=== PATIENT | female | born 1995 | race African-American/Black ===

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

== ENCOUNTER 2017-07-08 14:14 | Emergency (ER) | payer OTHER ==
[2017-07-08] MEDS: KETOROLAC TROMETHAMINE 10 MG TAB PO (16:15)
== END 2017-07-08 16:28 | disposition home or self-care (01) ==
LOC: M ED 14:14
DX: S39.012A Strain of muscle, fascia and tendon of lower back, initial encounter (principal); X58.XXXA Exposure to other specified factors, initial encounter; Y92.89 Other specified places as the place of occurrence of the external cause; G89.29 Other chronic pain; Z79.3 Long term (current) use of hormonal contraceptives
CPT/HCPCS: 99283

== ENCOUNTER 2017-10-04 22:33 | Inpatient (IN) | payer OTHER ==
[2017-10-04 23:28] LABS: HEMATOCRIT 40.6 % (36.0-47.0); HEMOGLOBIN 13.2 g/dl (12.0-15.5); MEAN CORPUSCULAR HEMOGLOBIN 29.1 pg (27.0-33.0); MEAN CORPUSCULAR HGB CONC 32.5 g/dl (32.0-36.5); MEAN CORPUSCULAR VOLUME 89.4 fl (80.0-96.0); PLATELET COUNT, AUTOMATED 296 10^3/uL (150-450); RED BLOOD COUNT 4.54 10^6/uL (4.00-5.40); RED CELL DISTRIBUTION WIDTH 11.5 % (11.5-14.5); WHITE BLOOD COUNT 7.5 10^3/uL (4.0-10.0)
[2017-10-04 23:44] LABS: CONTROL LINE HCG INT CTR LINE PRESENT; HCG, SERUM QUALITATIVE NEGATIVE (NEGATIVE)
[2017-10-04 23:50] LABS: AMPHETAMINES LEVEL URINE NEGATIVE (NEGATIVE); BARBITURATES URINE NEGATIVE (NEGATIVE); BENZODIAZEPINES URINE NEGATIVE (NEGATIVE); CANNABINOIDS URINE NEGATIVE (NEGATIVE); COCAINE METABOLITE URINE NEGATIVE (NEGATIVE); METHADONE URINE NEGATIVE (NEGATIVE); OPIATES URINE NEGATIVE (NEGATIVE); PHENCYCLIDINE URINE NEGATIVE (NEGATIVE)
[2017-10-04 23:59] LABS: ACETAMINOPHEN LEVEL < 2.0 UG/ML (10.0-30.0); ALBUMIN/GLOBULIN RATIO 1.14 (1.00-1.93); ALKALINE PHOSPHATASE 59 U/L (45-117); ALT/SGPT 14 U/L (12-78); ANION GAP 7 MEQ/L (8-16); AST/SGOT 6 U/L (7-37); BILIRUBIN,DIRECT 0.2 MG/DL (0.0-0.2); BILIRUBIN,TOTAL 0.8 MG/DL (0.2-1.0); BLOOD UREA NITROGEN 19 MG/DL (7-18); CALCIUM LEVEL 8.8 MG/DL (8.5-10.1); CARBON DIOXIDE LEVEL 25 MEQ/L (21-32); CHLORIDE LEVEL 108 MEQ/L (98-107); CREATININE FOR GFR 0.88 MG/DL (0.55-1.30); ETHYL ALCOHOL (ETHANOL) < 0.003 % (0.000-0.010); GLUCOSE, FASTING 87 MG/DL (70-100); POTASSIUM SERUM 4.3 MEQ/L (3.5-5.1); SALICYLATE LEVEL < 1.7 MG/DL (5.0-30.0); SODIUM LEVEL 140 MEQ/L (136-145); TOTAL PROTEIN 7.5 GM/DL (6.4-8.2)
[2017-10-05] MEDS ORDERED: LORazepam 1 MG TAB PO (00:15)
[2017-10-05] MEDS ORDERED: ACETAMINOPHEN TAB 650MG DOSE (2X325MG) PO (00:15)
[2017-10-05] MEDS ORDERED: MOM 30ML SUSPENSION UDC PO (00:15)
[2017-10-05] MEDS ORDERED: MAALOX 30 ML SUSP *UDC PO (00:15)
[2017-10-05] MEDS: PARoxetine 10MG TABLET PO (10:30)
[2017-10-06] MEDS: PARoxetine 10MG TABLET PO (08:18)
[2017-10-06] MEDS: traZODone 50 MG TAB PO (20:40)
[2017-10-07] MEDS: PARoxetine 10MG TABLET PO (08:11)
== END 2017-10-07 13:12 | disposition home or self-care (01) | DRG 885 ==
LOC: M ED INP 10-05 00:06 → M PSY 10-05 00:48 → M ED 22:33
DX: F32.0 Major depressive disorder, single episode, mild (principal); Z63.4 Disappearance and death of family member

== ENCOUNTER 2018-02-11 10:06 | Emergency (ER) | payer OTHER | END 2018-02-11 11:08 | disposition home or self-care (01) | LOC: M ED 10:06 | DX: O99.711 Diseases of the skin and subcutaneous tissue complicating pregnancy, first trimester (principal); R21 Rash and other nonspecific skin eruption; L29.9 Pruritus, unspecified; T49.2X5A Adverse effect of local astringents and local detergents, initial encounter; O99.341 Other mental disorders complicating pregnancy, first trimester; F41.9 Anxiety disorder, unspecified; Z79.899 Other long term (current) drug therapy; Z3A.09 9 weeks gestation of pregnancy | CPT/HCPCS: 99282 ==

== ENCOUNTER → 2018-04-16 | Outpatient (CLI) | payer OTHER ==
[~2018-04-16] MED LIST changes: +BENA25CA4 PO; +CYCL10TA PO; +DEPO150I; +IBUP-1114 PO; +NORCOTAB PO; +PARO10TA3 PO; +PREN1TAB11 PO; +TRAZ-163 PO
--- NOTE | 2018-04-16 12:52 | REP ---
Emergency obstetric sonography first trimester study. History: 18-week 4-day gestation, history of prior loss due to early cervical shortening. Referral for confirmation of cervical length and funneling by transvaginal scanning. Sonographic findings: Limited obstetric sonography demonstrates a viable single intrauterine gestation in a breech lie. heart rate is recorded at 136 beats per minute. Closed cervical length is measured at 1.6 cm transvaginally. No funneling of the internal cervical os was visualized. Impression: Transvaginal imaging shows no evidence of funneling. Cervical shortening is seen, 1.6 cm. heart rate 136 beats per minute. Electronically Signed by Roberto Argueta MD 04/16/2018 10:21 P
== END ==
LOC: M RAD 11:49
PROVIDERS: ATTEND Obstetrics & Gynecology
DX: O26.872 Cervical shortening, second trimester (principal); Z3A.18 18 weeks gestation of pregnancy

== ENCOUNTER 2018-06-23 18:25 | Outpatient (CLI) | payer OTHER ==
[~2018-06-23] VITALS: Ht 167.6 cm; Wt 64.6 kg
[~2018-06-23 18:25] MED LIST changes: +HYDR-3715 PO; -NORCOTAB PO
[2018-06-23 18:40] VITALS: BP 122/64
[2018-06-23] MEDS ORDERED: LR 1,000 ML IV ONE (19:00)
[2018-06-23] MEDS ORDERED: LR 1,000 ML IV SCH (19:00)
[2018-06-23 20:36] LABS: HEMATOCRIT 30.7 % (36.0-47.0); HEMOGLOBIN 10.1 g/dl (12.0-15.5); MEAN CORPUSCULAR HEMOGLOBIN 29.2 pg (27.0-33.0); MEAN CORPUSCULAR HGB CONC 32.9 g/dl (32.0-36.5); MEAN CORPUSCULAR VOLUME 88.7 fl (80.0-96.0); PLATELET COUNT, AUTOMATED 303 10^3/uL (150-450); RED BLOOD COUNT 3.46 10^6/uL (4.00-5.40)
[2018-06-23 20:48] LABS: APPEARANCE, URINE HAZY (CLEAR); BACTERIA, URINE AUTO 1+ (NEGATIVE); BILIRUBIN, URINE AUTO NEGATIVE (NEGATIVE); BLOOD, URINE BLOOD 1+ (NEGATIVE); COLOR, URINE YELLOW (YELLOW); GLUCOSE, URINE (UA) AUTO NEGATIVE (NEGATIVE); KETONE, URINE AUTO NEGATIVE (NEGATIVE); LEUKOCYTE ESTERASE, URINE AUTO 3+ (NEGATIVE); MUCUS, URINE SMALL (NEGATIVE); NITRITE, URINE AUTO NEGATIVE (NEGATIVE); PROTEIN, URINE AUTO NEGATIVE (NEGATIVE); RBC, URINE AUTO 4 /HPF (0-3); SQUAMOUS EPITHELIAL CELL UR AU 4 /HPF (0-6); UROBILINOGEN, URINE AUTO 0.2 mg/dL (0.0-2.0); WBC, URINE AUTO 49 /HPF (0-3)
[2018-06-23] MEDS ORDERED: PIPERACILLIN/TAZOBACTAM SOD 3.375 GM in D5W MINI-BAG PLUS 50 ML IV ONE (21:00)
--- NOTE | 2018-06-23 21:29 | HPE ---
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 No vaginal bleeding or discharge. She has had this about 6 or 7 hours ago. She is a 2, para 1 who on December 31, 2016, at 21 weeks 5 days had a spontaneous vaginal delivery through an incompetent cervix of a female, 19.7 grams, which lived for 11 minutes and then . 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 On examination today, she appears distressed, lying on her side, does not want to move because the flank pain hurts, although she has not taken any Tylenol for it. She has no history of burning on urination. She has a category 1 strip with no contractions. Hemoglobin is 10.1, hematocrit 30.7 and platelets 303. White count is 12.0. Blood pressure is 122/64, respirations are 18, pulse is 62, temperature is 98.2. Urine shows 3+ leukocyte esterase, 1+ blood, and 2+ bacteria, 1.015 with a pH of 7. The rest of the examination is unremarkable. She is normocephalic, atraumatic. Neck full range of motion. Pupils equal and reactive to light. Distal pulses are symmetric. No evidence of deep vein thrombosis (DVT), pulmonary embolism (PE) or superficial phlebitis. No wheezes or rhonchi. She does have costovertebral angle (CVA) tenderness, right midflank pain. She can move her legs, wiggle her toes, and she has good elevation. Four quadrant bowel sounds are noted. Soft uterus. heart as mentioned. No vaginal bleeding or loss. She has no rashes, lesions, or pruritus. No arthralgia or myalgia. No complaint of joint pain. No complaint of shortness of breath or dyspnea on exertion. She is not bleeding. Neurologic complete. She has no incontinence, urgency or frequency. She has never had a urinary tract infection (UTI) before. She has no nausea, vomiting, diarrhea or constipation. She has not had a sexually transmitted disease (STD). She has not had a Pap smear. She is under 21. Her family history is noncontributory. Past surgical history is wisdom teeth. She does not smoke, drink, abuses drugs. She is active duty. She is a [employer]. No domestic violence. Presently on vitamins and iron. In summary, we have a pre-termer at 28 weeks, not in active labor, no contractions, having urinary tract infection. Plan of management is to hydrate with intravenous (IV) bolus, prophylactic IV antibiotics. Will use Zosyn and then oral antibiotics pending urinary culture and discharge undelivered to followup with her routine appointment. She had 17-hydroxyprogesterone injection 4 days ago. She is booked for Friday. All questions were answered.
--- NOTE | 2018-06-24 07:00 | DSES ---
DATE OF ADMISSION: 06/23/2018 DATE OF DISCHARGE: 06/23/2018 This lady was a 22-year-old, 2, para 1, who was seen because of urinary tract infection (UTI). She was given 3.75 grams of Zosyn and a prescription of Macrobid. Her pain somewhat resolved after hydration, and the urine came back with a 3+ leukocyte esterase, 1+ blood, 2+ bacteria. We are awaiting the culture and sensitivity (C and S) to see if there is any alternative change in the antibiotic therapy. The patient was discharged undelivered with precautions.
== END 2018-06-23 22:30 | disposition home or self-care (01) ==
LOC: M LDO 18:25
PROVIDERS: ATTEND Obstetrics & Gynecology
DX: O99.89 Other specified diseases and conditions complicating pregnancy, childbirth and the puerperium (principal); O23.43 Unspecified infection of urinary tract in pregnancy, third trimester; Z3A.28 28 weeks gestation of pregnancy; Z87.51 Personal history of pre-term labor; M54.89 Other dorsalgia; M79.604 Pain in right leg; O99.013 Anemia complicating pregnancy, third trimester; O34.33 Maternal care for cervical incompetence, third trimester; O99.343 Other mental disorders complicating pregnancy, third trimester; Z14.1 Cystic fibrosis carrier; O26.893 Other specified pregnancy related conditions, third trimester
CPT/HCPCS: 81001; 85027; 96365; G0378; G0463; J2543

== ENCOUNTER 2018-07-13 14:54 | Outpatient (CLI) | payer OTHER ==
[~2018-07-13] VITALS: Ht 167.6 cm; Wt 65.5 kg
[2018-07-13 15:11] VITALS: BP 119/81
[2018-07-13] MEDS ORDERED: FERR325T3 PO (15:16)
[2018-07-13 17:04] VITALS: BP 117/65
[2018-07-13] MEDS ORDERED: BETAMETHASONE SOLUSPAN 6MG/ML INJ 5ML (J0702) IM SCH (18:30)
[2018-07-13] MEDS ORDERED: MAG Sulf (L&D) 4 GM/100 ML 4 GM in APPROPRIATE DILUENT 1 EA IV ONE (18:30)
[2018-07-13] MEDS ORDERED: CALCIUM GLUCONATE 1,000 MG in D5W MINI-BAG PLUS 100 ML IV PRN (18:30)
[2018-07-13 18:36] VITALS: BP 123/70
[2018-07-13] MEDS ORDERED: PENICILLIN G POTASSIUM IV 5 MU in D5W MINI-BAG PLUS 100 ML IV STA (18:37)
[2018-07-13] MEDS ORDERED: PENICILLIN G POTASSIUM 5 MU VIAL As Ordered ONE (18:43)
[2018-07-13 18:54] VITALS: BP 120/74
[2018-07-13] MEDS ORDERED: MAG Sulf (OBGYN) 20GM/500ML 20,000 MG in APPROPRIATE DILUENT 1 EA IV SCH (19:00)
[2018-07-13] MEDS ORDERED: INDOMETHACIN 25 MG CAP PO ONE (19:00)
[2018-07-13 19:10] VITALS: BP 109/67
[2018-07-13] MEDS ORDERED: CALCIUM GLUCONATE 1,000MG/10ML VIAL (100MG/ML) (J0610) As Ordered ONE (19:26)
[2018-07-13 19:27] LABS: APPEARANCE, URINE CLEAR (CLEAR); BACTERIA, URINE AUTO NEGATIVE (NEGATIVE); BILIRUBIN, URINE AUTO NEGATIVE (NEGATIVE); BLOOD, URINE BLOOD 2+ (NEGATIVE); COLOR, URINE YELLOW (YELLOW); GLUCOSE, URINE (UA) AUTO NEGATIVE (NEGATIVE); KETONE, URINE AUTO TRACE mg/dL (NEGATIVE); LEUKOCYTE ESTERASE, URINE AUTO TRACE (NEGATIVE); MUCUS, URINE SMALL (NEGATIVE); NITRITE, URINE AUTO NEGATIVE (NEGATIVE); PROTEIN, URINE AUTO NEGATIVE (NEGATIVE); RBC, URINE AUTO 38 /HPF (0-3); SPECIFIC GRAVITY URINE AUTO 1.014 (1.002-1.035); SQUAMOUS EPITHELIAL CELL UR AU 0 /HPF (0-6); UROBILINOGEN, URINE AUTO 0.2 mg/dL (0.0-2.0); WBC, URINE AUTO 2 /HPF (0-3)
[2018-07-13] MEDS ORDERED: PENICILLIN G POTASSIUM IV 2.5 MU in APPROPRIATE DILUENT 1 EA IV SCH (23:00)
== END 2018-07-13 19:47 | disposition short-term general hospital (02) ==
LOC: M LDO 14:54
PROVIDERS: ATTEND Obstetrics & Gynecology
DX: O26.853 Spotting complicating pregnancy, third trimester (principal); O34.33 Maternal care for cervical incompetence, third trimester; Z3A.31 31 weeks gestation of pregnancy
CPT/HCPCS: 36415; 59025; 81001; 86780; 86850; 86900; 86901; 96372; 96374; 96375; G0378; G0463; J0702; J3475